=== PATIENT | male | born 1985 | race African-American/Black ===

== ENCOUNTER 2020-01-20 08:45 | Emergency (ER) | payer SELFPAY ==
[2020-01-20 08:51] VITALS: BP 126/86; PULSE 115; RESP 18; TEMP 39.2; O2SAT 98
--- NOTE | 2020-01-20 09:24 | ED.GENADULT ---
HPI - General Adult General Chief complaint: Upper Respiratory Infection Stated complaint: I dont feel good Time Seen by Provider: 01/20/20 09:02 Source: patient Mode of arrival: ambulatory Limitations: no limitations History of Present Illness HPI narrative: Patient is a 34-year-old male who presents to emergency department for evaluation of fever chills body aches upper respiratory symptoms for 2 days has taken ryce-gis-gwkexkw medication with minimal improvement notes moderate aching pain that is generalized to the joints and muscles denies any vomiting or diarrhea presents per private vehicle in no distress Related Data Allergies Allergy/AdvReac Type Severity Reaction Status Date / Time No Known Allergies Allergy Verified 01/20/20 08:53 Review of Systems Review of Systems: All systems reviewed & are unremarkable except as noted in HPI and below PMFSH Social History Social History (Updated 01/20/20 @ 09:26 by Bala Augustine PA-C) Smoking status: Current every day smoker Exam Narrative: Exam Narrative: GENERAL: Well-appearing, well-nourished, and in no acute distress. HEAD: Normocephalic, atraumatic. EYES: PERRLA and EOMI. ENT: Nares clear, no rhinorrhea or epistaxis. Mucous membranes moist. Oropharynx without tonsillar hypertrophy exudate or other lesions. CHEST: Clear to auscultation. No respiratory distress. No wheezes rales or rhonchi HEART: Regular rate and rhythm. No murmur heard. EXTREMITIES: Normal range of motion. No edema. SKIN: Warm, dry, no rash. NEURO: No focal deficits. Alert and oriented x3. Cranial nerves II through XII grossly intact PSYCH: Normal mood and affect. Course Course Emergency Course: Patient in the room in no distress aware of case findings treatment plan and diagnosis Vital Signs Vital signs: Vital Signs Temperature 102.5 F H 01/20/20 08:51 Pulse Rate 115 H 01/20/20 08:51 Respiratory Rate 18 01/20/20 08:51 Blood Pressure 126/86 01/20/20 08:51 Pulse Oximetry 98 01/20/20 08:51 Temperature 102.5 F H 01/20/20 08:51 Pulse Rate 115 H 01/20/20 08:51 Respiratory Rate 18 01/20/20 08:51 Blood Pressure 126/86 01/20/20 08:51 Pulse Oximetry 98 01/20/20 08:51 Medical Decision Making MDM Narrative Medical decision making narrative: Patient with influenza in the room nontoxic-appearing felt appropriate for outpatient reevaluation agreeing to follow-up as directed or to return if symptoms worsen or concerns Vital Signs Vital Signs: Vital Signs Temperature 102.5 F H 01/20/20 08:51 Pulse Rate 115 H 01/20/20 08:51 Respiratory Rate 18 01/20/20 08:51 Blood Pressure 126/86 01/20/20 08:51 Pulse Oximetry 98 01/20/20 08:51 Temperature 102.5 F H 01/20/20 08:51 Pulse Rate 115 H 01/20/20 08:51 Respiratory Rate 18 01/20/20 08:51 Blood Pressure 126/86 01/20/20 08:51 Pulse Oximetry 98 01/20/20 08:51 Lab Data Labs: Influenza A Screen Positive Reference Range: Negative Influenza B Screen Negative Reference Range: Negative Discharge Plan Discharge Clinical Impression: Influenza Patient Disposition: Home, Self-Care Condition: Stable Instructions: Antibiotic Form, Influenza (ED) Additional Instructions: Follow up with your primary care provider within 5-7 days. Go to ER for shortness of breath, difficulty breathing, chest pain, fever/chills, weakness, nauseau/vomitting, etc. or any other concerns. Stay well-hydrated Take any prescribed medications as directed. Follow patient education sheets If you do not have a drug allergy to tylenol or motrin and can tolerate it then take tylenol or motrin as needed for discomfort/pain. Prescriptions: New oseltamivir [Tamiflu] 75 mg capsule 75 mg PO Q12H 5 Days Qty: 10 RF: 0 ibuprofen [IBU] 600 mg tablet 600 mg PO QID PRN (Reason: fever or pain) Qty: 10 RF: 0 Follow-up/Referrals: PHYSICIAN,CRABBER [Primary
[2020-01-20] MEDS: IBUPROFEN 600 MG TABLET PO (09:46)
== END 2020-01-20 10:05 | disposition home or self-care (01) ==
PROVIDERS: Emergency Provider Emergency Medicine
DX: J10.1 Influenza due to other identified influenza virus with other respiratory manifestations (principal); F17.200 Nicotine dependence, unspecified, uncomplicated
CPT/HCPCS: 87804; 99283; A9270